=== PATIENT | female | born 1970 | race Caucasian/White ===

== ENCOUNTER 2016-10-28 06:43 | Emergency (ER) | payer SELFPAY ==
--- NOTE | 2016-10-28 07:06 | EDM.PDOC ---
ED HISTORY OF PRESENT ILLNESS - General Chief Complaint: Chest Pain Stated Complaint: DIZZY Time Seen by Provider: 10/28/16 07:00 Source of Information: Reports: Patient History Limitations: Reports: No limitations - History of Present Illness INITIAL COMMENTS - FREE TEXT/NARRATIVE: History of present illness: [] Patient awoke this morning with severe spinning sensation, nausea, sweats and felt like her heart was racing. She denies any chest pain, shortness of breath, headache or vomiting. Patient has a history of a pituitary tumor that was treated at her last brain imaging was 4 years ago and it was completely resolved. Review of systems: As per history of present illness and below otherwise all systems reviewed and negative. Past medical history: As per history of present illness and as reviewed below otherwise noncontributory. Surgical history: As per history of present illness and as reviewed below otherwise noncontributory. Social history: No reported history of drug or alcohol abuse. Family history: As per history of present illness and as reviewed below otherwise noncontributory. Physical exam: General: Well developed, well nourished in NAD HEENT: Atraumatic, normocephalic, pupils reactive, negative for conjunctival pallor or scleral icterus, mucous membranes moist, throat clear, neck supple, nontender, trachea midline. Lungs: Clear to auscultation, breath sounds equal bilaterally, chest nontender. Heart: S1S2, regular, negative for clicks, rubs, or JVD. Abdomen: Soft, nondistended, nontender. Negative for masses or hepatosplenomegaly. Negative for costovertebral tenderness. Pelvis: Stable nontender. Genitourinary: Deferred. Rectal: Deferred. Extremities: Atraumatic, negative for cords or calf pain. Neurovascular unremarkable. Neuro: Awake, alert, oriented. Cranial nerves II through XII unremarkable. Cerebellum unremarkable. Motor and sensory unremarkable throughout. Exam nonfocal. Diagnostics: [] Labs EKG chest x-ray normal Therapeutics: [] IV hydrated Zofran and meclizine given Impression: [] Benign positional vertigo. I recommended she follow up with her doctor for a repeat MRI at some point to confirm pituitary tumor has not returned. Plan: [] Followup PMD return if symptoms worsen meclizine every 8 hours as needed for dizziness Zofran for nausea. Definitive disposition and diagnosis as appropriate pending reevaluation and review of above. 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 Musculoskeletal History: Reports: None Neurological History: Reports: None Psychiatric History: Reports: Anxiety Endocrine/Metabolic History: Reports: None Oncologic (Cancer) History: Reports: Other (see below) Other Oncologic History: pituitary tumor - Infectious Disease History Infectious Disease History: Reports: None Social & Family History - Family History Family Medical History: Noncontributory - Tobacco Use Smoking Status *Q: Never Smoker - Recreational Drug Use Recreational Drug Use: No ED ROS GENERAL - Review of Systems Review Of Systems: See Below (See history of present illness) ED EXAM, GENERAL - Physical Exam Exam: See Below (See history of present illness) Course - Vital Signs Last Recorded V/S: Last Vital Signs Temp 36.5 C 10/28/16 06:48 Pulse 113 H 10/28/16 06:48 Resp 16 10/28/16 06:48 BP 147/92 H 10/28/16 06:48 Pulse Ox 97 10/28/16 06:48 - Orders/Labs/Meds Orders: Active Orders 24 hr Category Date Time Status EKG 12 Lead [EKG Documentation Completion] [RC] STAT Care 10/28/16 06:53 Active Chest 1V Frontal [CR] Stat Exams 10/28/16 06:53 Taken Labs: Laboratory Tests 10/28/16 10/28/16 10/28/16 Range/Units 06:48 06:48 06:48 WBC 4.76 (4.0-11.0) K/uL RBC 4.45 (4.30-5.90) M/uL Hgb 13.5 (12.0-16.0) g/dL Hct 40.0 (36.0-46.0) % MCV 89.9 (80.0-98.0) fL MCH 30.3 (27.0-32.0) pg MCHC 33.8 (31.0-37.0) g/dL RDW Std Deviation 39.9 (28.0-62.0) fl RDW Coeff of Devi 12 (11.0-15.0) % Plt Count 298 (150-400) K/uL MPV 9.90 (7.40-12.00) fL Neut % (Auto) 48.6 (48.0-80.0) % Lymph % (Auto) 38.2 (16.0-40.0) % [place] % (Auto) 7.8 (0.0-15.0) % Eos % (Auto) 4.6 (0.0-7.0) % Baso % (Auto) 0.8 (0.0-1.5) % Neut # 2.3 (1.4-5.7) K/uL Lymph # 1.8 (0.6-2.4) K/uL [place] # 0.4 (0.0-0.8) K/uL Eos # 0.2 (0.0-0.7) K/uL Baso # 0.0 (0.0-0.1) K/uL Nucleated RBC % 0.0 /100WBC Nucleated RBCs # 0 K/uL Sodium 141 (136-146) mmol/L Potassium 3.5 (3.5-5.1) mmol/L Chloride 109 (98-110) mmol/L Carbon Dioxide 20 L (21-31) mmol/L BUN 12 (6.0-23.0) mg/dL Creatinine 0.8 (0.6-1.5) mg/dL Est Cr Clr Drug Dosing 62.44 mL/min Estimated GFR (MDRD) > 60.0 ml/min Glucose 124 H (60-110) mg/dL Calcium 9.5 (8.8-10.8) mg/dL Total Bilirubin 0.6 (0.1-1.5) mg/dL AST 15 (5-40) IU/L ALT 23 (8-54) IU/L Alkaline Phosphatase 88 (40-150) Troponin I < 0.10 (0.0-0.29) NG/ML Total Protein 7.4 (6.0-8.0) g/dL Albumin 4.2 (3.5-5.0) g/dL Globulin 3.2 (2.0-3.5) g/dL Albumin/Globulin Ratio 1.3 (1.3-2.8) TSH 3rd Generation (0.47-5.0) uIU/mL 10/28/16 Range/Units 06:48 WBC (4.0-11.0) K/uL RBC (4.30-5.90) M/uL Hgb (12.0-16.0) g/dL Hct (36.0-46.0) % MCV (80.0-98.0) fL MCH (27.0-32.0) pg MCHC (31.0-37.0) g/dL RDW Std Deviation (28.0-62.0) fl RDW Coeff of Devi (11.0-15.0) % Plt Count (150-400) K/uL MPV (7.40-12.00) fL Neut % (Auto) (48.0-80.0) % Lymph % (Auto) (16.0-40.0) % [place] % (Auto) (0.0-15.0) % Eos % (Auto) (0.0-7.0) % Baso % (Auto) (0.0-1.5) % Neut # (1.4-5.7) K/uL Lymph # (0.6-2.4) K/uL [place] # (0.0-0.8) K/uL Eos # (0.0-0.7) K/uL Baso # (0.0-0.1) K/uL Nucleated RBC % /100WBC Nucleated RBCs # K/uL Sodium (136-146) mmol/L Potassium (3.5-5.1) mmol/L Chloride (98-110) mmol/L Carbon Dioxide (21-31) mmol/L BUN (6.0-23.0) mg/dL Creatinine (0.6-1.5) mg/dL Est Cr Clr Drug Dosing mL/min Estimated GFR (MDRD) ml/min Glucose (60-110) mg/dL Calcium (8.8-10.8) mg/dL Total Bilirubin (0.1-1.5) mg/dL AST (5-40) IU/L ALT (8-54) IU/L Alkaline Phosphatase (40-150) Troponin I (0.0-0.29) NG/ML Total Protein (6.0-8.0) g/dL Albumin (3.5-5.0) g/dL Globulin (2.0-3.5) g/dL Albumin/Globulin Ratio (1.3-2.8) TSH 3rd Generation 0.75 (0.47-5.0) uIU/mL Meds: Medications Discontinued Medications Generic Name Dose Route Start Last Admin Trade Name Freq PRN Reason Stop Dose Admin Sodium Chloride 1,000 mls @ 999 mls/hr 10/28/16 07:11 10/28/16 07:37 Normal Saline IV 10/28/16 08:11 999 mls/hr .Bolus ONE Administration Meclizine HCl 25 mg 10/28/16 07:35 10/28/16 07:38 Antivert PO 10/28/16 07:36 25 mg ONETIME ONE Administration Ondansetron HCl 4 mg 10/28/16 07:11 10/28/16 07:36 Zofran IVPUSH 10/28/16 07:12 4 mg ONETIME ONE Administration Departure - Departure Time of Disposition: 08:39 Disposition: Home, Self-Care 01 Condition: good Clinical Impression: Benign positional vertigo Qualifiers: Laterality: unspecified laterality Qualified Code(s): H81.10 - Benign paroxysmal vertigo, unspecified ear Prescriptions: Ondansetron [Zofran ODT] 4 mg PO Q8H PRN #10 tab.dis PRN Reason: Nausea Forms: ED Department Discharge Additional Instructions: The following information is given to patients seen in the emergency department who are being discharged to home. This information is to outline your options for follow-up care. We provide all patients seen in our emergency department with a follow-up referral. The need for follow-up, as well as the timing and circumstances, are variable depending upon the specifics of your emergency department visit. If you don't have a primary care physician on staff, we will provide you with a referral. We always advise you to contact your personal physician following an emergency department visit to inform them of the circumstance of the visit and for follow-up with them and/or the need for any referrals to a consulting specialist. The emergency department will also refer you to a specialist when appropriate. This referral assures that you have the opportunity for follow-up care with a specialist. All of these measure are taken in an effort to provide you with optimal care, which includes your follow-up. Under all circumstances we always encourage you to contact your private physician who remains a resource for coordinating your care. When calling for follow-up care, please make the office aware that this follow-up is from your recent emergency room visit. If for any reason you are refused follow-up, please contact the [facility] Emergency Department at and asked to speak to the emergency department charge nurse. Zofran for nausea, meclizine every 8 hours as needed for dizziness [facility] [address] [place] [id number]
[2016-10-28] MEDS ORDERED: Sodium Chloride 0.9% 1,000 ML IV ONE (07:11)
[2016-10-28] MEDS ORDERED: Ondansetron 4 MG/2 ML SDV IVPUSH ONE (07:11)
[2016-10-28 07:18] LABS: CHLORIDE,CL 109 mmol/L (98-110); SODIUM,NA 141 mmol/L (136-146)
[2016-10-28] MEDS ORDERED: Meclizine 25 MG Tab PO ONE (07:35)
[2016-10-28 08:49] VITALS: BP 125/89
--- NOTE | 2016-10-30 16:50 | CR ---
EXAM DATE: 10/28/16 PATIENT'S AGE: 45 Patient: DAGO OCHOA Facility: [place], [place] Site . Site : 1970 Study: XRay Chest [id number]/14/2017 7:04:39 AM Ordering Physician: Doctor Tafoya Final Report: HISTORY: Palpitations. FINDINGS: AP portable chest radiograph is compared with 30 September 2016. EKG leads overlie the thorax. The cardiac silhouette is normal. Pulmonary vasculature is free of cephalization. No lobar consolidation or pleural effusion is seen. No pneumothorax. IMPRESSION: No acute cardiopulmonary disease. Dictated by Mami Smyth MD @ 10/28/2016 7:16:28 AM Dictated by: Mami Smyth MD @ 10/28/2016 07:16:40 (Electronic Signature) Report Signed by Proxy and Original Signed Document filed in the Medical Record. MTDD
== END 2016-10-28 08:47 | disposition home or self-care (01) ==
LOC: MW.ED 06:43
DX: H81.10 Benign paroxysmal vertigo, unspecified ear (principal); R11.0 Nausea; R61 Generalized hyperhidrosis
CPT/HCPCS: 36415; 71010; 80053; 84443; 84484; 85025; 93005; 96361; 96374; 99284; A9270; J2405; J7040

== ENCOUNTER → 2016-12-01 | Outpatient (CLI) | payer BC ==
[~2016-12-01] MED LIST: Gadobutrol 7.5 mMOL/7.5 ML SDV IVPUSH STA
--- NOTE | 2016-12-03 11:16 | MR ---
EXAMINATION: MRI of the brain with and without contrast HISTORY: There is no history of benign neoplasm COMPARISON: None TECHNIQUE: Multiplanar and multisequence images obtained through the head before and following the a dministration of 7.5 mL of Gadavist. A pituitary protocol was used. FINDINGS: There is no mass, mass effect, or midline shift. The ventricles and sulci are symmetric. N o abnormal diffusion restriction is noted. The maxillary sinuses and mastoid air cells are grossly clear. The orbits and globes are symmetric. No extra-axial fluid collection. The pituitary gland enh ances homogeneously. No hypoenhancing component identified to suggest a pituitary adenoma. Infundibu lum is midline. The optic nerves and optic chiasm appear normal. The visualized flow voids are prese nt. The remaining midline structures appear normal. IMPRESSION: 1. No pituitary mass identified. 2. Otherwise unremarkable MRI of the brain.
== END ==
LOC: MW.MRI 15:49
PROVIDERS: ATTEND Family Medicine
DX: Z00.00 Encounter for general adult medical examination without abnormal findings (principal); Z86.018 Personal history of other benign neoplasm; R53.83 Other fatigue; R23.2 Flushing
CPT/HCPCS: 36415; 70553; 80053; 80061; 82670; 83001; 83002; 83525; 84144; 84146; 84443; 85027; A9585; 70551

== ENCOUNTER 2017-11-27 10:09 | Emergency (ER) | payer OTHER, BC ==
[2017-11-27 10:24] VITALS: BP 101/72
[2017-11-27] MEDS ORDERED: Lidocaine 1% 20 ML MDV INJECT ONE (10:33)
[2017-11-27] MEDS ORDERED: Diphtheria,Pertussis(Acell),Tetanus Vaccine 0.5 ML Syringe IM ONE (10:33)
[2017-11-27] MEDS ORDERED: Acetaminophen/HYDROcodone 325-5 MG Tab PO ONE (10:33)
--- NOTE | 2017-11-27 11:02 | EDM.PDOC ---
ED HPI GENERAL MEDICAL PROBLEM - General Chief Complaint: Laceration Stated Complaint: RIGHT MIDDLE FINGER CUT WORK RELATED Time Seen by Provider: 11/27/17 10:21 Source of Information: Reports: Patient History Limitations: Reports: No Limitations - History of Present Illness INITIAL COMMENTS - FREE TEXT/NARRATIVE: HISTORY AND PHYSICAL: History of present illness: Patient is a 47-year-old female who presents to the emergency room with complaints of a crush injury to her right middle digit. She states she slammed it with a washing machine lid. Did result in a "Z" shape laceration to the pad of her finger. She is currently complaining of pain and throbbing to the affected extremity. Unsure of her last tetanus. Review of systems: As per history of present illness and below otherwise all systems reviewed and negative. Past medical history: As per history of present illness and as reviewed below otherwise noncontributory. Surgical history: As per history of present illness and as reviewed below otherwise noncontributory. Social history: No reported history of drug or alcohol abuse. Family history: As per history of present illness and as reviewed below otherwise noncontributory. Physical exam: General: Well-developed and well-nourished 47-year-old female. Alert and oriented. Nontoxic appearing and in no acute distress. HEENT: Atraumatic, normocephalic, pupils equal and reactive bilaterally, negative for conjunctival pallor or scleral icterus, mucous membranes moist, throat clear, neck supple, nontender, trachea midline. No drooling or trismus noted. No meningeal signs Lungs: Clear to auscultation, breath sounds equal bilaterally, chest nontender. Heart: S1S2, regular rate and rhythm without overt murmur Abdomen: Soft, nondistended, nontender. Negative for masses or hepatosplenomegaly. Negative for costovertebral tenderness. Pelvis: Stable nontender. Genitourinary: Deferred. Rectal: Deferred. Skin: 0.5 CM "Z" shape laceration to pad of right middle distal digit. No nailbed involvement. Otherwise skin is intact, warm, dry. No lesions or rashes noted. Extremities: Crush injury to the right middle digit, strong radial pulse. Capillary refill less than 3 seconds. Moves all other extremities without difficulty or deficits. She is negative for cords or calf pain. Neurovascular unremarkable. Neuro: Awake, alert, oriented. Cranial nerves II through XII unremarkable. Cerebellum unremarkable. Motor and sensory unremarkable throughout. Exam nonfocal. Notes: Patient states that she has been immense pain, I will give her one tablet [place] while she is waiting for x-rays. She is too tender to check the laceration for depth, it does appear to be superficial I am unable to spread it open. We'll reevaluate once she has better managed pain. Diagnostics: X-ray Therapeutics: [place], Tdap, 1% lidocaine Impression: Crush injury, right middle digit Finger Laceration Plan: 1. Please keep the area clean and dry. Sutures to be removed in about 7 days. 2. Continue to monitor for signs of infection. 3. Tylenol or/and ibuprofen as needed for pain management. You may use the tramadol (#8) as needed for moderate to severe pain. This medication may cause drowsiness a do not take it will driving or needing to be functioning outside the house. 4. Follow-up with the general hand surgeon or your primary care provider in the next 1-2 days. Return to the ED as needed and as discussed. Definitive disposition and diagnosis as appropriate pending reevaluation and review of above. Onset: Today Duration: Minutes: Location: Reports: Upper Extremity, Right right middle finger Pain Score (Numeric/FACES): 7 - Related Data Allergies Allergy/AdvReac Type Severity Reaction Status Date / Time Penicillins Allergy Hives Verified 10/28/16 06:47 Home Meds: Home Meds Ondansetron [Zofran ODT] 4 mg PO Q8H PRN #10 tab.dis 10/28/16 [Rx] Venlafaxine HCl [Venlafaxine ER] 75 mg PO DAILY 11/27/17 [History] atorvaSTATin [Lipitor] 10 mg PO DAILY 11/27/17 [History] Past Medical History HEENT History: Reports: None Cardiovascular History: Reports: High Cholesterol Respiratory History: Reports: None Gastrointestinal History: Reports: None Genitourinary History: Reports: Renal Calculus 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 Musculoskeletal History: Reports: None Neurological History: Reports: None Psychiatric History: Reports: Anxiety Endocrine/Metabolic History: Reports: None Hematologic History: Reports: None Immunologic History: Reports: None Oncologic (Cancer) History: Reports: Other (See Below) Other Oncologic History: pituitary tumor Dermatologic History: Reports: None - Infectious Disease History Infectious Disease History: Reports: None - Past Surgical History Head Surgeries/Procedures: Reports: None HEENT Surgical History: Reports: None Cardiovascular Surgical History: Reports: None Respiratory Surgical History: Reports: None Female Surgical History: Reports: Tubal Ligation Oncologic Surgical History: Reports: None Social & Family History - Family History Family Medical History: Noncontributory - Tobacco Use Smoking Status *Q: Never Smoker Second Hand Smoke Exposure: No - Caffeine Use Caffeine Use: Reports: Tea - Recreational Drug Use Recreational Drug Use: No ED ROS GENERAL - Review of Systems Review Of Systems: ROS reveals no pertinent complaints other than HPI. ED EXAM, SKIN/RASH Exam: See Below (See dictation) ED SKIN PROCEDURES - Laceration/Wound Repair right middle digit Lac/Wound length In cm: 0.5 Appearance: Subcutaneous Anesthetic Type: Local Local Anesthesia - Lidocaine (Xylocaine): 1% Plain Local Anesthetic Volume: 4cc Skin Prep: Chlorhexidine (Hibiciens), Saline, Sterile Drape Saline Irrigation (cc's): 20 Exploration/Debridement/Repair: Wound Explored, In a Bloodless Field, No Foreign Material Found Closed with: Sutures Suture Size: 4-0 # of Sutures: 4 Suture Type: Nylon Drain Placement: No Sterile Dressing Applied: Provider Tetanus Status Addressed: Yes Complications: No Progress/Comments: Bulky dressing applied, nonstick with Bacitracin Course - Vital Signs Last Recorded V/S: Last Vital Signs Temp 97.8 F 11/27/17 10:22 Pulse 87 11/27/17 10:22 Resp 18 11/27/17 10:22 BP 101/72 11/27/17 10:22 Pulse Ox 96 11/27/17 10:22 - Orders/Labs/Meds Orders: Active Orders 24 hr Category Date Time Status Vaccines to be Administered [RC] PER UNIT ROUTINE Care 11/27/17 10:34 Active Meds: Medications Discontinued Medications Generic Name Dose Route Start Last Admin Trade Name Sofi PRN Reason Stop Dose Admin Hydrocodone Bitart/Acetaminophen 1 tab 11/27/17 10:33 11/27/17 11:10 [place] 325-5 Mg PO 11/27/17 10:34 1 tab ONETIME ONE Administration Bacitracin 1 dose 11/27/17 11:28 11/27/17 11:32 Bacitracin Oint 1 Gm TOP 11/27/17 11:29 1 dose ONETIME ONE Administration Diphtheria/Tetanus/Acell Pertussis 0.5 ml 11/27/17 10:33 11/27/17 11:10 Adacel IM 11/27/17 10:34 0.5 ml .ONCE ONE Administration Lidocaine HCl 20 ml 11/27/17 10:33 11/27/17 11:28 Xylocaine 1% INJECT 11/27/17 10:34 20 ml ONETIME ONE Administration Departure - Departure Time of Disposition: 11:39 Disposition: Home, Self-Care 01 Clinical Impression: Crush injury to finger Qualifiers: Encounter type: initial encounter Qualified Code(s): S67.10XA - Crushing injury of unspecified finger(s), initial encounter Finger laceration Qualifiers: Encounter type: initial encounter Finger: middle finger Damage to nail status: without damage Foreign body presence: without foreign body Laterality: right Qualified Code(s): S61.212A - Laceration without foreign body of right middle finger without damage to nail, initial encounter - Discharge Information Instructions: Laceration Care, Adult, [id number] Referrals: Lori Fonseca MD [Primary Care Provider] - Forms: ED Department Discharge Additional Instructions: The following information is given to patients seen in the emergency department who are being discharged to home. This information is to outline your options for follow-up care. We provide all patients seen in our emergency department with a follow-up referral. The need for follow-up, as well as the timing and circumstances, are variable depending upon the specifics of your emergency department visit. If you don't have a primary care physician on staff, we will provide you with a referral. We always advise you to contact your personal physician following an emergency department visit to inform them of the circumstance of the visit and for follow-up with them and/or the need for any referrals to a consulting specialist. The emergency department will also refer you to a specialist when appropriate. This referral assures that you have the opportunity for follow-up care with a specialist. All of these measure are taken in an effort to provide you with optimal care, which includes your follow-up. Under all circumstances we always encourage you to contact your private physician who remains a resource for coordinating your care. When calling for follow-up care, please make the office aware that this follow-up is from your recent emergency room visit. If for any reason you are refused follow-up, please contact the [facility] Emergency Department at and asked to speak to the emergency department charge nurse. [facility] [address] [place] [id number] 1. Please keep the area clean and dry. Sutures to be removed in about 7 days. 2. Continue to monitor for signs of infection. 3. Tylenol or/and ibuprofen as needed for pain management. You may use the tramadol as needed for moderate to severe pain. This medication may cause drowsiness a do not take it will driving or needing to be functioning outside the house. 4. Follow-up with the general hand surgeon or your primary care provider in the next 1-2 days. Return to the ED as needed and as discussed. - My Orders Last 24 Hours: My Active Orders 11/27/17 10:34 Vaccines to be Administered [RC] PER UNIT ROUTINE - Assessment/Plan Last 24 Hours: My Active Orders 11/27/17 10:34 Vaccines to be Administered [RC] PER UNIT ROUTINE
--- NOTE | 2017-11-27 11:18 | CR ---
EXAMINATION: Right hand, third digit HISTORY: Injury COMPARISON: None TECHNIQUE: 3 views FINDINGS: There is a tiny ossific density noted along the dorsal plate of the distal third DIP joint. Otherwise the visualized osseous structures appear intact. Bone mineralization appears normal. Mild generalized soft tissue swelling within the third digit. IMPRESSION: 1. Tiny ossific density at the dorsal plate third DIP joint.. This could represent a degenerative francois cification or disrupted osteophyte. This unlikely represent dorsal plate avulsion injury given the la ck of flexion at the DIP joint.
[2017-11-27] MEDS ORDERED: Bacitracin Oint 1 GM U/D Packet TOP ONE (11:28)
== END 2017-11-27 12:09 | disposition home or self-care (01) ==
LOC: MW.ED 10:09
DX: S67.192A Crushing injury of right middle finger, initial encounter (principal); S61.212A Laceration without foreign body of right middle finger without damage to nail, initial encounter; E78.00 Pure hypercholesterolemia, unspecified; Z88.0 Allergy status to penicillin; Z23 Encounter for immunization; Z79.899 Other long term (current) drug therapy; W23.1XXA Caught, crushed, jammed, or pinched between stationary objects, initial encounter
CPT/HCPCS: 12001; 73140; 90471; 90715; 99283; A9270